=== PATIENT | male | born 1945 | race Caucasian/White ===

== ENCOUNTER 2021-03-19 07:06 | Day surgery (SDC) | payer MEDICARE ==
[~2021-03-19] VITALS: Ht 177.8 cm; Wt 87.9 kg
[2021-03-19 07:40] VITALS: BP 127/75
[2021-03-19] MEDS ORDERED: LIDOCAINE 1%, 10ML ONE (08:28)
[2021-03-19] MEDS ORDERED: MIDAZOLAM 1 MG/ML, 5ML ONE (08:36)
[2021-03-19] MEDS ORDERED: FLUMAZENIL 0.1 MG/1 ML, 5ML ONE (08:36)
[2021-03-19] MEDS ORDERED: NALOXONE 1 MG/ML, 2ML ONE (08:36)
[2021-03-19] MEDS ORDERED: FENTANYL PF 100 MCG/2ML ONE (08:36)
[2021-03-19] MEDS ORDERED: SODIUM CHLORIDE 0.9% 1,000 ML IV SCH (09:00)
[2021-03-19] MEDS ORDERED: VISIPAQUE 320 MG/ML, 150ML BOTTLE ONE (10:18)
[2021-03-19] MEDS ORDERED: VISIPAQUE 320MG/ML, 50ML BOTTLE ONE (10:18)
[2021-03-19] MEDS ORDERED: IBUPROFEN 600 MG TABLET PO ONE (14:30)
== END 2021-03-19 15:30 | disposition home or self-care (01) ==
LOC: OUT 07:06 → EDSTATUS 09:00 → OUT 15:30
PROVIDERS: ATTEND Registered Nurse
DX: Q27.30 Arteriovenous malformation, site unspecified (principal); I10 Essential (primary) hypertension; F32.9 Major depressive disorder, single episode, unspecified; G47.30 Sleep apnea, unspecified; Z87.891 Personal history of nicotine dependence
CPT/HCPCS: 36224; 99156; 99157; C1751; C1769; C1894; J2250; J3010; J7030; Q9967; 76937; J2310